=== PATIENT | female | born 1930 | race Caucasian/White ===

== ENCOUNTER 2018-07-09 10:51 | Observation (INO) | payer MEDICARE, MEDICAID ==
[~2018-07-09] VITALS: Ht 165.1 cm; Wt 73.9 kg
[~2018-07-09 10:51] MED LIST: VANCOMYCIN 1,100 MG in SODIUM CHLORIDE 0.9% 250 ML IVPB ONE
[2018-07-09] MEDS ORDERED: LEVO50TA5 PO (11:26)
[2018-07-09] MEDS ORDERED: AMLO2.5T5 PO (11:26)
[2018-07-09] MEDS ORDERED: DOCU-131 PO (11:27)
[2018-07-09] MEDS ORDERED: ROSU5TAB PO (11:27)
[2018-07-09] MEDS ORDERED: ASPI325T17 PO (11:30)
[2018-07-09] MEDS ORDERED: CITA20TA9 PO (11:30)
[2018-07-09] MEDS ORDERED: OMEP20CA14 PO (11:31)
[2018-07-09 11:45] VITALS: BP 143/61
[2018-07-09] MEDS ORDERED: FENTANYL PF 100 MCG/2ML ONE (16:04)
[2018-07-09] MEDS ORDERED: VANCOMYCIN 500 MG ONE (16:04)
[2018-07-09] MEDS ORDERED: MIDAZOLAM 1 MG/ML, 2ML ONE (16:04)
[2018-07-09] MEDS ORDERED: VANCOMYCIN PMX 1GM/200ML 200 ML ONE (16:05)
[2018-07-09] MEDS ORDERED: LIDOCAINE 1%, 20ML ONE (16:05)
[2018-07-09] MEDS ORDERED: BISACODYL 5 MG EC TABLET PO PRN (18:00)
[2018-07-09] MEDS ORDERED: HOLD MEDICATION MC PRN (18:00)
[2018-07-09] MEDS ORDERED: ONDANSETRON 2MG/ML, 2ML IV PRN (18:00)
[2018-07-09] MEDS ORDERED: ACETAMINOPHEN 325 MG TABLET PO PRN (18:00)
[2018-07-09] MEDS: SODIUM CHLORIDE 0.9% 1,000 ML IV SCH ×2 (18:47→21:27)
[2018-07-09 18:54] VITALS: BP 146/71
[2018-07-09] MEDS ORDERED: TEMPLATE NON-FORMULARY MED. (Rosuvastatin Calcium** (Crestor**) 5 MG) PO SCH (21:00)
[2018-07-09] MEDS ORDERED: ATORVASTATIN 10 MG TABLET PO SCH (21:00)
[2018-07-09] MEDS: DOCUSATE 100 MG CAPSULE PO SCH (21:30)
[2018-07-09] MEDS: SODIUM CHLORIDE FLUSH 10ML SYR IVF SCH (21:31)
[2018-07-10 02:57] VITALS: BP 169/70
[2018-07-10] MEDS: SODIUM CHLORIDE 0.9% 1,000 ML IV SCH ×2 (03:34→11:15)
[2018-07-10 07:34] VITALS: BP 154/65
[2018-07-10] MEDS: DOCUSATE 100 MG CAPSULE PO SCH (08:27)
[2018-07-10] MEDS: SODIUM CHLORIDE FLUSH 10ML SYR IVF SCH (08:27)
[2018-07-10] MEDS ORDERED: CITALOPRAM 20 MG TABLET PO SCH (09:00)
[2018-07-10] MEDS ORDERED: AMLODIPINE 2.5 MG TABLET PO SCH (09:00)
[2018-07-10] MEDS ORDERED: LEVOTHYROXINE 50 MCG TABLET PO SCH (09:00)
[2018-07-10] MEDS ORDERED: OMEPRAZOLE 20 MG CAPSULE.DR PO SCH (09:00)
[2018-07-10] MEDS ORDERED: ASPIRIN 325 MG TABLET PO SCH (09:00)
[2018-07-10 13:33] VITALS: BP 91/53
== END 2018-07-10 15:00 | disposition home or self-care (01) ==
LOC: CACL 10:51 → 5SO 17:30 → CACL 17:43 → 5SO 17:43 → DCLOUNGE 07-10 14:48
PROVIDERS: ADMIT Internal Medicine Cardiovascular Disease; ATTEND Internal Medicine Cardiovascular Disease
DX: I48.91 Unspecified atrial fibrillation (principal); I49.5 Sick sinus syndrome; I44.0 Atrioventricular block, first degree
CPT/HCPCS: 33208; 71045; 99156; 99157; C1779; C1785; C1892; G0378; J2250; J3010; J3370; J3490